=== PATIENT | male | born 1995 | race Caucasian/White ===

== ENCOUNTER 2018-04-20 00:49 | Emergency (ER) | payer OTHER ==
[2018-04-20] MEDS ORDERED: Bacitracin/Neomycin/Polymyxin B Oint 0.9 GM U/D Packet TOP ONE (02:06)
--- NOTE | 2018-04-20 02:14 | EDM.PDOC ---
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 the jewel grinder and the grandmother kicked back and went on his right forearm he had a laceration of approximately 5 -6 cm with ragged edges and burning edges and an burning on the edges Onset: Today Duration: Minutes:, Improving Location: Reports: Upper Extremity, Right (6 cm laceration) Quality: Reports: Ache, Burning Severity: Moderate Improves with: Reports: Medication Context: Reports: Trauma Associated Symptoms: Reports: No Other Symptoms Right Arm Pain Score (Numeric/FACES): 1 - Related Data Allergies Allergy/AdvReac Type Severity Reaction Status Date / Time No Known Allergies Allergy Verified 04/20/18 00:50 Home Meds: Home Meds . [No Known Home Meds] 04/20/18 [History] Past Medical History - Past Health History Medical/Surgical History: Denies Medical/Surgical History Social & Family History - Tobacco Use Smoking Status *Q: Light Tobacco Smoker Years of Tobacco use: 0 Packs/Tins Daily: 0 - Caffeine Use Caffeine Use: Reports: None - Recreational Drug Use Recreational Drug Use: No ED ROS GENERAL - Review of Systems Review Of Systems: ROS reveals no pertinent complaints other than HPI. Constitutional: Reports: No Symptoms HEENT: Reports: No Symptoms Respiratory: Reports: No Symptoms Cardiovascular: Reports: No Symptoms Endocrine: Reports: No Symptoms GI/Abdominal: Reports: No Symptoms : Reports: No Symptoms Musculoskeletal: Reports: No Symptoms Skin: Reports: No Symptoms Neurological: Reports: No Symptoms ED EXAM, SKIN/RASH Exam: See Below Exam Limited By: No Limitations General Appearance: Alert, WD/WN, No Apparent Distress Ears: Normal External Exam, Normal Canal, Hearing Grossly Normal, Normal TMs Nose: Normal Inspection, Normal Mucosa, No Blood Throat/Mouth: Normal Inspection, Normal Lips, Normal Teeth, Normal Gums, Normal Oropharynx, Normal Voice, No Airway Compromise Head: Atraumatic, Normocephalic Neck: Normal Inspection, Supple, Non-Tender, Full Range of Motion Respiratory/Chest: No Respiratory Distress, Lungs Clear, Normal Breath Sounds, No Accessory Muscle Use, Chest Non-Tender Cardiovascular: Normal Peripheral Pulses, Regular Rate, Rhythm, No Edema, No Gallop, No JVD, No Murmur, No Rub GI/Abdominal: Normal Bowel Sounds, Soft, Non-Tender, No Organomegaly, No Distention, No Abnormal Bruit, No Mass (Male) Exam: Deferred Rectal (Males) Exam: Deferred Back Exam: Normal Inspection, Full Range of Motion, NT Extremities: Normal Inspection, Normal Range of Motion, Non-Tender, No Pedal Edema, Normal Capillary Refill Neurological: Alert, Oriented, CN II-XII Intact, Normal Cognition, Normal Gait, Normal Reflexes, No Motor/Sensory Deficits Psychiatric: Normal Affect, Normal Mood Lymphatic: No Adenopathy ED SKIN PROCEDURES - Additional/Other Procedure(s) Other (Free Text) Procedure(s): Patient is a 23-year-old who works for [employer] was at work when the jewel grinder slipped on his hand cutting him on his forearm he came in with a laceration approximately 6 cm with burn edges and a regular there was a lot of debris and this was removed both manually and by excision at this time we decided to close it the area was prepped and draped in the usual standard form 20 mL's of lidocaine was infused to infiltrate the forearm was the forearm was prepped and draped we using a 15 blade we revised the borders and remove all the burn tissue after appropriate hemostasis the wound was closed with 3-0 nylon interrupted sutures were used patient tolerated well the procedure sent home on Keflex 500 and Motrin 400 for pain Course - Vital Signs Last Recorded V/S: Last Vital Signs Temp 98.8 F 04/20/18 01:05 Pulse 89 04/20/18 01:05 Resp 16 04/20/18 01:05 BP 117/80 04/20/18 01:05 Pulse Ox 100 04/20/18 01:05 - Orders/Labs/Meds Meds: Medications Discontinued Medications Generic Name Dose Route Start Last Admin Trade Name Freq PRN Reason Stop Dose Admin Neomycin/Polymyxin/Bacitracin 2 each 04/20/18 02:06 Triple Antibiotic Oint TOP 04/20/18 02:07 ONETIME ONE Departure - Departure Time of Disposition: 02:14 Disposition: Home, Self-Care 01 Condition: Fair Clinical Impression: Laceration of right forearm - Discharge Information *PRESCRIPTION DRUG MONITORING PROGRAM REVIEWED*: No *COPY OF PRESCRIPTION DRUG MONITORING REPORT IN PATIENT DAREN: No Instructions: Laceration Care, Adult, [id number] Referrals: PCP,Not In Area [Primary Care Provider] - Care Plan Goals: Patient will be sent home on Keflex 500 4 times a day for 10 days suture removal in 10 days patient will be placed on light duty until tolerating
== END 2018-04-20 02:35 | disposition home or self-care (01) ==
LOC: LL.ED 00:49
DX: S51.821A Laceration with foreign body of right forearm, initial encounter (principal); F17.210 Nicotine dependence, cigarettes, uncomplicated; W31.89XA Contact with other specified machinery, initial encounter; Y99.0 Civilian activity done for income or pay
CPT/HCPCS: 12002; 99282